=== PATIENT | female | born 1960 | race Caucasian/White ===

== ENCOUNTER 2024-07-24 18:15 | Emergency (ER) | payer MEDICARE, BC ==
[~2024-07-24] VITALS: Ht 167.6 cm; Wt 80.9 kg
[2024-07-24 18:18] VITALS: O2SAT 97
[2024-07-24 19:29] LABS: CLARITY,URINE SLIGHTLY CLOUDY (Clear); COLOR,URINE RED (Yellow); UA COLLECTION TYPE CLN CATCH MIDSTREAM
[2024-07-24 19:34] LABS: MUCUS STRANDS NONE SEEN /LPF (Neg); SQUAMOUS EPITHELIAL CELL,UR FEW /LPF (FEW)
[2024-07-24 19:36] LABS: BACTERIA,URINE FEW /HPF (Neg); RBC,URINE TNTC /HPF (0-2); WBC,URINE 50-100 /HPF (0-4)
[2024-07-24] MEDS ORDERED: CEPH-585 PO (19:41)
[2024-07-24] MEDS ORDERED: PHEN-716 PO (19:41)
[2024-07-24] MEDS: CefTRIAXone 1000mg IM Kit (w/lidocaine diluent) IM ONE (19:47)
[2024-07-24] MEDS: phenazopyridine 100mg tablet PO ONE (19:47)
[2024-07-24 19:54] VITALS: BP 128/86; PULSE 78; RESP 16; TEMP 98.6
== END 2024-07-24 19:55 | disposition home or self-care (01) ==
LOC: ER 18:16
DX: N39.0 Urinary tract infection, site not specified (principal)
CPT/HCPCS: 81001; 87088; 96372; 99283; J0696

== ENCOUNTER 2025-04-10 08:43 | Outpatient (CLI) | payer MEDICARE, OTHER ==
[~2025-04-10 08:43] MED LIST: PHEN-716 PO
--- NOTE | 2025-04-10 11:55 | VASCULAR REPORT ---
PROCEDURE: [facility] 04/10/2025 09:04 AM INDICATION: Evaluate for carotid stenosis. COMPARISON: None TECHNIQUE: Real-time grayscale and color Doppler images of the neck arteries were obtained with spect ral analysis performed. FINDINGS: RIGHT: Moderate calcified plaque formation identified in the carotid. Normal spectral waveforms are seen. ICA peak systolic velocity: 99 cm/s ICA end-diastolic velocity: 30 cm/s ICA/CCA ratios: 1.66 LEFT: Mild calcified plaque formation identified in the carotid. Normal spectral waveforms are seen. ICA peak systolic velocity: 73 cm/s ICA end-diastolic velocity: 22 cm/s ICA/CCA ratios: 1.24 VERTEBRAL ARTERIES: Normal antegrade flow is seen bilaterally. Normal spectral waveforms. IMPRESSION: 1. Calcified plaque formation of the bilateral carotid bulbs without hemodynamically significant sten osis. Reference: Radiology 2003; [id number] Normal ICA PSV is <125 cm/sec and no plaque or intimal thickening is visible sonographically addition al criteria include ICA/CCA PSV ratio <2.0 and ICA EDV <40 cm/sec <50% ICA stenosis ICA PSV is <125 cm/sec and plaque or intimal thickening is visible sonographically additional criteria include ICA/CCA PSV ratio <2.0 and ICA EDV <40 cm/sec 50-69% ICA stenosis ICA PSV is 125-230 cm/sec and plaque is visible sonographically additional criter ia include ICA/CCA PSV ratio of 2.0-4.0 and ICA EDV of 40-100 cm/sec 70% ICA stenosis but less than near occlusion ICA PSV is >230 cm/sec and visible plaque and luminal narrowing are seen at neely-scale and color Doppler ultrasound (the higher the Doppler parameters lie above the threshold of 230 cm/sec, the greater the likelihood of severe disease) additional criteria include ICA/CCA PSV ratio >4 and ICA EDV >100 cm/sec
== END 2025-04-10 23:59 | disposition home or self-care (01) ==
LOC: VAS 08:43
PROVIDERS: ATTEND Internal Medicine Cardiovascular Disease
DX: I65.23 Occlusion and stenosis of bilateral carotid arteries (principal)
CPT/HCPCS: 93880